=== PATIENT | female | born 1965 | race African-American/Black ===

== ENCOUNTER → 2021-09-29 11:20 | Outpatient (BNVA) | payer MEDICARE, MEDICAID, SELFPAY | PROVIDERS: Referring Provider Emergency Medicine; Visit Provider Internal Medicine Cardiovascular Disease | DX: I25.2 Old myocardial infarction (principal); I25.10 Atherosclerotic heart disease of native coronary artery without angina pectoris; I10 Essential (primary) hypertension; Z72.0 Tobacco use | CPT/HCPCS: 93005; 99212 ==

== ENCOUNTER → 2022-04-07 13:49 | Outpatient (REF) | payer MEDICARE, MEDICAID, SELFPAY ==
--- NOTE | 2022-04-07 13:55 | CA_ITS ---
Transthoracic Echocardiogram Patient (Last, First, Middle): Karolina Singer, Gender: Female Date of : 1965 Age: 57 Procedure Date: 04/07/2022 Procedure Type: Transthoracic Echocardiogram Location: OP Height: 167.64 cm Weight: 63.5 kg BSA: 1.72 m2 Heart Rate: bpm BP: 132 / 84 mmHg Pattern Grader Supervisor: ARABELLA Referring MD: Andre Medrano MD Ore Feeder: Luis Contreras MD Symptoms: I25.2 - Old myocardial infarction Study Quality: Adequate ECG Rhythm: Sinus Conclusions: - 1. Mildly reduced LV ejection fraction at 45-50% with wall motion abnormality of the inferior inferolateral wall with impaired relaxation filling pattern 2. Mild aortic stenosis 3. Moderately dilated left atrium 4. No gross pericardial effusion 5. Mildly dilated ascending aorta at 3.8 cm Findings Left Ventricle Normal left ventricular cavity size. There is normal left ventricular wall thickness. The left ventricular systolic function is mildly decreased. The visually estimated ejection fraction is between 45-50%. Spectral Doppler is indicative of an impaired relaxation filling pattern. E/E prime ratio is between 8 and 15 consistent with indeterminate filling pressures. Wall Motion Rest Echo Findings The mid inferior and basal inferoseptal segments are hypokinetic. The basal inferior and basal inferolateral segments are akinetic. All other scored wall segments showed normal motion. Right Ventricle Normal right ventricular cavity size and systolic function. Atria The left atrium is moderately dilated. There is no evidence of interatrial shunt. The right atrium is normal in size. Aortic Valve There is mild thickening of the aortic valve. There is mild aortic valve stenosis. The peak aortic gradient is 17 mmHg.The mean gradient is 10 mmHg. The aortic valve area is 1.87 cm2. There is no aortic valve regurgitation. Mitral Valve There is mild anterior and posterior mitral leaflet thickening. The posterior mitral leaflet has restricted mobility. There is trace mitral valve regurgitation. There is no mitral valve stenosis. Pulmonic Valve The pulmonic valve was not well visualized. Tricuspid Valve Likely normal tricuspid valve structure and function. Tricuspid regurgitation envelope is inadequate for calculation of right ventricular systolic pressure. Normal right atrial pressure. Great Vessels The pulmonary artery was not well visualized. There is mild dilatation of the ascending aorta. Venous The inferior vena cava is normal in size and collapses greater than 50% with inspiration. Pericardium/Pleural There is no evidence of pericardial effusion. Prior Study Comparison No prior study available for comparison. Measurements 2D Linear Measurements IVSd: 1.18 0.6-0.9/0.6-1.0 cm LVIDd: 5.24 3.9-5.3/4.2-5.9 cm LVIDd Index: 3.05 2.4-3.2/2.2-3.1 cm/m2 LVIDs: 3.91 2.0-3.6 cm LVPWd: 0.93 0.7-1.1 cm LA Diam: 3.80 2.7-3.8/3.0-4.0 cm LAIDs Index: 2.21 1.5-2.3 cm/m2 LV Mass: 263.48 67-162/88-224 g LV Mass Index: 153.19 43-95/49-115 g/m2 LVOT Diam: 1.90 3.0+(-)1.3 cm 2D Systolic Function EF 4C: 47.20 >55% EF 2C: 47.30 >55% EF BiP: 47.10 >55% Mitral Valve MV Pk E: 0.76 MV PK A: 0.99 MV Decel Time: 195.00 E/A: 0.80 E'Lateral: 3.92 E'Medial: 4.66 E/E' Med: 16.30 E/E' Lat: 19.30 PHT: 57.00 MVA PHT: 3.86 Decel [place]: 3.90 Aortic Valve AoV Pk Denny: 2.04 AoV Mn Denny: 1.49 AoV VTI: 0.46 AoV Pk Grad: 17.00 Aov Mn Grad: 10.00 MILES Cont.VTI: 1.87 LVOT LVOT Pk Denny: 1.40 LVOT Mn Denny: 0.93 LVOT VTI: 0.31 LVOT Pk Grad: 8.00 LVOT Mn Grad: 4.00 LVOT Diam: 1.90 LVOT Area: 2.84 Diastolic Function MV Pk E: 0.76 MV Pk A: 0.99 E/A: 0.80 E'Medial: 4.66 E/E' Med: 16.30 E' Laterial: 3.92 E/E' Lat: 19.30 Right Ventricle TAPSE (mm): 24.00 TVS' Denny: 19.00 Tricuspid Valve RA Press: 3.00 Great Vessels Aorta Sinus of Valsalva: 3.67 2.0-3.[address] [place]: 2.63 1.7-3.4 cm Ao Asc: 3.80 2.1-3.4 cm Updated in Other Vendor System with Status of Final Luis Contreras MD electronically signed on 04/08/2022 4:28:39 PM with status of Final
== END ==
LOC: HO.CARD 13:49
PROVIDERS: Visit Provider Internal Medicine Cardiovascular Disease
DX: I25.2 Old myocardial infarction (principal)
CPT/HCPCS: 93306

== ENCOUNTER 2022-04-16 13:54 | Outpatient (REF) | payer MEDICARE, MEDICAID, SELFPAY ==
[2022-04-16 14:13] LABS: MANUAL DIFF FLAG NO
[2022-04-16 14:21] LABS: Basophils Percent Auto 0.2 % (0-2); Eosinophils Absolute Auto 0.7 X10*3/uL (0.0-0.4); Eosinophils Percent Auto 16.5 % (0-4); Hematocrit 39.3 % (37.0-47.0); Hemoglobin 12.2 g/dl (12.0-16.0); Lymphocytes Percent Auto 23.6 % (20-40); Mean Corpuscular Hemoglobin 30.3 pg (27.0-33.0); Mean Corpuscular Volume 97.5 fL (80.0-98.0); Mean Platelet Volume 9.1 fL (9.4-12.3); Monocytes Absolute Auto 0.3 X10*3/uL (0.1-1.2); Neutrophils Absolute Auto 2.3 x10*3/uL (2.0-8.3); Neutrophils Percent Auto 53.7 % (45-73); Platelet Count 353 X10*3/uL (160-400); Red Blood Count 4.03 X10*6/uL (4.20-5.50); Red Cell Distribution Width 13.1 % (11.0-16.0); White Blood Count 4.4 X10*3/uL (4.8-10.8)
[2022-04-16 14:52] LABS: Alanine Aminotransferase 13 U/L (0-31); Albumin Level 3.3 g/dL (3.5-5.0); Alkaline Phosphatase 111 U/L (39-117); Anion Gap 9 (12-20); Aspartate Amino Transferase 21 U/L (5-31); Bilirubin Total 0.5 mg/dL (0.0-1.0); Blood Urea Nitrogen 16 mg/dL (9-16); Calcium 8.8 mg/dL (8.4-10.2); Carbon Dioxide 24 mmol/L (22-29); Chloride 108 mmol/L (96-108); Cholesterol 222 mg/dL; Estimated Glomerular Filt Rate > 60; Glucose Random 120 mg/dL (60-115); HDL Cholesterol 64 mg/dL; LDL Cholesterol Calculated 141 mg/dl; Potassium 4.4 mmol/L (3.3-5.1); Sodium 137 mmol/L (135-145); Total Protein 6.9 g/dL (6.5-8.0); Triglycerides 87 mg/dL
== END 2022-04-16 13:55 | disposition home or self-care (01) ==
LOC: HO.LAB 13:54
PROVIDERS: PCP Internal Medicine; Visit Provider Nurse Practitioner Family
DX: I25.10 Atherosclerotic heart disease of native coronary artery without angina pectoris (principal); I10 Essential (primary) hypertension; I25.2 Old myocardial infarction; Z98.890 Other specified postprocedural states; Z72.0 Tobacco use
CPT/HCPCS: 36415; 80053; 80061; 85025; 93005; 99212

== ENCOUNTER 2024-07-06 15:12 | Outpatient (AMB) | payer MEDICARE, MEDICAID, SELFPAY ==
--- NOTE | 2024-07-06 15:17 | A.OFFVIS_ITS ---
Vital Signs 07/06/24 15:18 Height 5 ft 6 in Weight 190 lb 14.725 oz BMI 30.8 BP 124/80 Blood Pressure Location Rt brachial Position Sitting Intake Visit Reasons: follow up refill meds rs from 07/04/24 Machine Repair Person Required: No Allergies codeine Allergy (Intermediate, Verified 07/06/24 15:21) Dizziness Medication List - Last Reconciled 07/06/24 by Cheyanne Hylton, [employer]ELOP[employer] CONSULTANT-C albuterol sulfate 90 mcg/actuation 0 mcg inhalation aspirin 81 mg PO DAILY atorvastatin 80 mg PO DAILY ferrous sulfate 325 mg PO DAILY hydroxyzine HCl 25 mg PO TID PRN thiamine HCl (vitamin B1) 100 mg PO DAILY HPI HPI follow up refill meds rs from 07/04/24: Details: Karolina is a 59 yo female with PMH of HTN, HLD, smoking, CAD with prior inferior STEMI who presents for follow up. Her last prior visit to our office was 04/16/2022. Today she reports that since her last visit she has been admitted to [facility] on at least 2 occasions for noncardiac reasons. She tells me she has not had any heart problems for the last few years. She denies having any chest discomfort at rest or with activity. She denies shortness of breath, PND, orthopnea or edema. No lightheadedness, palpitations, presyncope, syncope, falls. Has issues with her skin so she stays inside much of time. Takes all meds as directed. She tells me that her carvedilol was stopped but is unsure why. She ran out of Logisticaresto and is requesting a refill. Family members are present. [facility] Surgical History H/O gastric bypass History of right knee surgery H/O section History of cardiac cath Family History Mother Heart disease Father Prostate cancer Asthma Diabetes HTN (hypertension) Sister Asthma Brother Diabetes Sister Diabetes Social History Alcohol intake: current Alcohol intake frequency: holidays/special occasions only Patient Tobacco Use Status: Current everyday Tobacco user Cigarette Packs Per Day: 0.5 Cigarettes Per Day: 6 Years Smoked: 40 +/- on and off. Substance Use Type: Crack/Cocaine and Marijuana Review of Systems Const All systems reviewed & are unremarkable except as noted in HPI and below ENT Denies dizziness Card Denies chest pain, Denies chest pain at rest, Denies chest pain with activity, Denies rapid heart rate, Denies pedal edema, Denies edema, Denies leg edema, Denies lightheadedness, Denies palpitations, Reports dyspnea, Reports dyspnea on exertion and Denies orthopnea Resp Denies cough, Reports dyspnea and Reports dyspnea on exertion GI Denies hematochezia and Denies change in stool character Musc Denies abnormal gait, Denies limited range of motion, Denies muscle cramps, Denies muscle weakness, Denies numbness, Denies radiating pain into limb, Denies stiffness and Denies tingling Neuro Denies abnormal gait, Denies dizziness, Denies numbness and Denies tingling Endo Denies palpitations Physical Exam Vital Signs: Last Vital Signs BP 124/80 07/06/24 15:18 BMI result Body Mass Index 30.8 Const General: cooperative, comfortable and no acute distress Neck Neck: Yes normal visual inspection and Yes no JVD Resp Effort & Inspection: normal respiratory effort Auscultation: clear to auscultation bilaterally, no crackles, no rales, no rhonchi and no wheezes Cardio Jugular venous distension: no JVD Rate: regular rate Rhythm: regular rhythm Heart sounds: S1 normal heart sound present, S2 normal heart sound present, no gallops, no murmurs and no rubs GI Inspection: Yes normal to inspection Extrem General: Yes normal to inspection and No no pedal edema Psych Appearance: grossly normal Mental Status: mental status grossly normal Speech and movement: Normal speech and movement present Office Procedures EKG Details: Today, read by me, sinus rhythm, possible inferior and anterior infarct, age undetermined, rate 67, QTC 456 milliseconds [id number], Complete Assessment & Plan Assessment & Plan (1) CAD (coronary artery disease): Code(s): I25.10 - Atherosclerotic heart disease of lummi coronary artery without angina pectoris Category: Medical Plan: Hx of inferior STEMI 07/17/21. Cardiac cath showed mod LAD stenosis, 60% RCA sten osis with plaque rupture, R PDA 85% stenosis. NILMA was placed to RCA and angioplasty done to R PDA. Last Echo done on 04/07/22 showed EF 45-50%, WMA inferior and inferiolateral territories, impaired relaxation, mild , mod dilated LA. She had been on Entresto and carvedilol. Her med list today does not include either medication. She was not seen in the office between 04/16/2022 and today. She currently reports no anginal sounding symptoms. Continues to smoke 1/2 pack per day. Ongoing cardiac risk factor modification reviewed with her. Continue aspirin indefinitely. Continue high-dose atorvastatin. No recent labs for review. Will reach out to her PCP office and/or [facility] to check most recent labs and medications. Once labs reviewed will send refill on Entresto if appropriate. Will update echocardiogram. s/s angina, HF reviewed with her. Cardiology follow up in 1 yr, sooner if needed (2) S/P cardiac cath: Comment: 07/17/21 LAD mid 50% stenosis, LCx normal, RCA mid 60% stenosis with plaque rupture, NILAM placed, R PDA 85% stenosis, angioplasty done, heavy thrombus. Code(s): Z98.890 - Other specified postprocedural states Category: Surgical (3) Old inferior wall myocardial infarction: Code(s): I25.2 - Old myocardial infarction Category: Medical Plan: As above (4) Essential hypertension: Code(s): I10 - Essential (primary) hypertension Category: Medical Plan: Normal at this time. No med changes made. Plan Time spent on chart review, documentation, interview and assessment Orders: Orders CA echo transthoracic complete Today I25.10 - Atherosclerotic heart disease of lummi coronary artery without angina pectoris, I25.2 - Old myocardial infarction Coding Level of Care Code Est Pt Level 4 (44945) Diagnoses CAD (coronary artery disease) I25.10 S/P cardiac cath Z98.890 Old inferior wall myocardial infarction I25.2 Essential hypertension I10 CPT Codes EKG - CPT: 15060-[id number], Complete ([id number]) Time Spent (min) 35
[2024-07-06 15:18] VITALS: BP 124/80; BMI 30.8
== END 2024-07-06 15:47 | disposition home or self-care (01) ==
PROVIDERS: PCP Internal Medicine; Visit Provider Nurse Practitioner Family
DX: I25.10 Atherosclerotic heart disease of native coronary artery without angina pectoris (principal); Z98.890 Other specified postprocedural states; I25.2 Old myocardial infarction; I10 Essential (primary) hypertension
CPT/HCPCS: 93010; 99214

== ENCOUNTER → 2024-07-06 15:12 | Outpatient (BNVA) | payer MEDICARE, MEDICAID, SELFPAY | PROVIDERS: PCP Internal Medicine; Visit Provider Nurse Practitioner Family | DX: I25.10 Atherosclerotic heart disease of native coronary artery without angina pectoris (principal); I10 Essential (primary) hypertension; I25.2 Old myocardial infarction; Z98.890 Other specified postprocedural states | CPT/HCPCS: 93005; 99212 ==

== ENCOUNTER → 2024-09-05 12:25 | Outpatient (REF) | payer MEDICARE, MEDICAID, SELFPAY ==
--- NOTE | 2024-09-05 12:28 | CA_ITS ---
Transthoracic Echocardiogram Patient (Last, First, Middle): Karolina Singer, Gender: Female Date of : 1965 Age: 59 Procedure Date: 09/05/2024 Procedure Type: Transthoracic Echocardiogram Location: OP Height: 167. cm Weight: 70.31 kg BSA: 1.79 m2 Heart Rate: 65 bpm BP: 138 / 85 mmHg Lithographic Camera Operator: NAN White MD: Cheyanne Hylton NP-Disha Hair Rooting Machine Operator: Luis Contreras MD Symptoms: I25.10 - Atherosclerotic heart disease of jena coronary artery without... Study Quality: Adequate ECG Rhythm: Sinus Conclusions: - 1.Mildly dilated left ventricle with moderate to severe LV ejection fraction of 30 35% with underlying regional wall motion abnormality consistent with ischemic cardiomyopathy with impaired relaxation filling pattern 2. Mildly dilated left atrium 3. Calcific aortic and mitral valve changes noted with no significant abnormalities of cardiac valvular Doppler 4. Normal RV systolic pressure 5. Mildly dilated ascending aorta at 3.8 cm 6. No gross pericardial effusion Findings Left Ventricle Mildly increased left ventricular cavity size. There is mildly increased left ventricular wall thickness. The left ventricular systolic function is moderate to severely decreased. The visually estimated ejection fraction is between 30-35%. There is evidence of regional wall motion abnormalities. Spectral Doppler is indicative of an impaired relaxation filling pattern. E/E prime ratio is between 8 and 15 consistent with indeterminate filling pressures. Wall Motion Rest Echo Findings The basal anteroseptal segment is hypokinetic. The inferoseptal wall, inferolateral wall, the mid inferior, and apical septum segments are akinetic. The basal inferior segment is dyskinetic. All other scored wall segments showed normal motion. Right Ventricle Normal right ventricular cavity size and systolic function. Atria The left atrium is mildly dilated. There is no evidence of interatrial shunt. The right atrium is likely dilated. Aortic Valve There is mild calcification of the aortic valve. There is moderate thickening of the aortic valve. There is no aortic valve stenosis. There is no aortic valve regurgitation. Mitral Valve There is mild anterior and moderate posterior mitral leaflet thickening. The posterior mitral leaflet has restricted mobility. There is moderate mitral annular calcification. There is trace mitral valve regurgitation. There is no mitral valve stenosis. Pulmonic Valve The pulmonic valve is likely normal. There is trace pulmonic valve regurgitation. Tricuspid Valve Normal tricuspid valve structure. There is trace tricuspid valve regurgitation. The right ventricular systolic pressure is normal. The right ventricular systolic pressure is 17 mmHg. Normal right atrial pressure. There is no evidence of pulmonary hypertension. Great Vessels The pulmonary artery was not well visualized. There is mild dilatation of the ascending aorta measuring 3.80 cm. Small plaque is seen in the sino tubular ridge. Venous The inferior vena cava is normal in size and collapses greater than 50% with inspiration. Pericardium/Pleural There is no evidence of pericardial effusion. Prior Study Comparison Changes noted compared to prior study dated: 04/07/2022. LV systolic function has reduced Measurements 2D Linear Measurements IVSd: 1.19 0.6-0.9/0.6-1.0 cm LVIDd: 5.99 3.9-5.3/4.2-5.9 cm LVIDd Index: 3.35 2.4-3.2/2.2-3.1 cm/m2 LVIDs: 4.78 2.0-3.6 cm LVPWd: 1.00 0.7-1.1 cm LA Diam: 5.00 2.7-3.8/3.0-4.0 cm LAIDs Index: 2.79 1.5-2.3 cm/m2 LV Mass: 345.72 67-162/88-224 g LV Mass Index: 193.14 43-95/49-115 g/m2 LVOT Diam: 2.10 3.0+(-)1.3 cm 2D Systolic Function EF 4C: 37.60 >55% EF 2C: 35.10 >55% EF BiP: 34.50 >55% Mitral Valve MV Pk E: 0.59 MV PK A: 1.02 MV Decel Time: 243.00 E/A: 0.60 E'Lateral: 5.43 E'Medial: 2.80 E/E' Med: 21.10 E/E' Lat: 10.90 PHT: 71.00 MVA PHT: 3.10 Decel [place]: 2.43 Aortic Valve AoV Pk Denny: 1.44 AoV Mn Denny: 1.14 AoV VTI: 0.33 AoV Pk Grad: 8.00 Aov Mn Grad: 6.00 MILES Cont.VTI: 2.63 LVOT LVOT Pk Denny: 1.35 LVOT Mn Denny: 0.89 LVOT VTI: 0.25 LVOT Pk Grad: 7.00 LVOT Mn Grad: 4.00 LVOT Diam: 2.10 LVOT Area: 3.46 Diastolic Function MV Pk E: 0.59 MV Pk A: 1.02 E/A: 0.60 E'Medial: 2.80 E/E' Med: 21.10 E' Laterial: 5.43 E/E' Lat: 10.90 Right Ventricle TAPSE (mm): 29.10 TVS' Denny: 17.40 Tricuspid Valve TR Pk Denny: 1.84 TR Pk Grad: 14.00 RA Press: 3.00 RVSP: 17.00 Great Vessels Aorta Sinus of Valsalva: 3.40 2.0-3.5 cm Ao Asc: 3.80 2.1-3.4 cm Pulmonary Valve PV Pk Denny: 0.81 Peak PV Grad: 3.00 Updated in Other Vendor System with Status of Final Luis Contreras MD electronically signed on 09/06/2024 5:10:30 PM with status of Final
== END ==
LOC: HO.CARD 12:25
PROVIDERS: PCP Internal Medicine; Visit Provider Nurse Practitioner Family
DX: I25.10 Atherosclerotic heart disease of native coronary artery without angina pectoris (principal); I25.2 Old myocardial infarction
CPT/HCPCS: 93306

== ENCOUNTER → 2024-09-05 12:28 | Outpatient (BNV) | payer MEDICARE, MEDICAID, SELFPAY | PROVIDERS: PCP Internal Medicine; Visit Provider Internal Medicine Cardiovascular Disease | DX: I25.10 Atherosclerotic heart disease of native coronary artery without angina pectoris (principal) | CPT/HCPCS: 93306 ==

== ENCOUNTER 2024-09-18 12:40 | Outpatient (REF) | payer MEDICARE, SELFPAY ==
[2024-09-18 14:36] LABS: Alanine Aminotransferase 22 U/L (0-31); Albumin Level 3.5 g/dL (3.5-5.0); Alkaline Phosphatase 118 U/L (39-117); Anion Gap 8 (12-20); Aspartate Amino Transferase 34 U/L (5-31); Bilirubin Total 0.3 mg/dL (0.0-1.0); Blood Urea Nitrogen 16 mg/dL (9-16); Calcium 8.9 mg/dL (8.4-10.2); Carbon Dioxide 25 mmol/L (22-29); Chloride 107 mmol/L (96-108); Cholesterol 175 mg/dL (<200); Estimated Glomerular Filt Rate > 60; Glucose Random 128 mg/dL (60-115); HDL Cholesterol 67 mg/dL (>40); LDL Cholesterol Calculated 94 mg/dL (<100); Sodium 136 mmol/L (135-145); Total Protein 7.2 g/dL (6.5-8.0); Triglycerides 73 mg/dL (<150)
== END 2024-09-18 12:41 | disposition home or self-care (01) ==
LOC: HO.LAB 12:40
PROVIDERS: PCP Internal Medicine; Visit Provider Nurse Practitioner Family
DX: I25.10 Atherosclerotic heart disease of native coronary artery without angina pectoris (principal)
CPT/HCPCS: 36415; 80053; 80061

== ENCOUNTER → 2025-04-24 09:59 | Outpatient (REF) | payer MEDICARE, SELFPAY ==
--- NOTE | ~2025-04-24 | NM_ITS ---
Lexiscan Myocardial perfusion study Indication: Coronary artery disease Technique: The patient was brought in for a Lexiscan perfusion study on 04/24/2025 and was injected 0.4 mg of Lexiscan intravenously. Within a minute of this injection 30 mCi of sestamibi was given intravenously. Images were obtained using the SPECT gamma camera interlaced with the gating device. Images were obtained in supine position. Resting perfusion study was performed on 05/04/2025. Patient was administered 30 mCi of sestamibi intravenously at rest. Images were then obtained in supine position. Total DLP 107 mGy-cm. Images were processed with the software and compared side to side in short axis, horizontal long axis and vertical long axis views. Findings: Raw aquisition reviewed. The stress perfusion study showed absent tracer uptake along mostly inferior wall, inferolateral wall. Reduced tracer uptake in the mid to distal anterior septum. With CT attenuation correction, no significant change in the inferior wall uptake. In the anterior septum, uptake is worse and hence could be because artifactual. The gated study shows reduced LV systolic function with calculated LVEF of 27%. LV cavity is dilated in size. The gated study shows reduced contractility in the inferior/inferolateral wall. Reduced contractility in the distal anterior septum. Resting study shows reduced absent tracer uptake in the inferior/inferolateral wall but slightly improved compared to stress acquisition. Reduced tracer uptake in the distal part of anterior septum. With CT attenuation correction, inferior wall uptake is similar. Improved anterior uptake. Gating at rest reveals reduced was documented inferior/inferolateral wall. Reduced thickening in the anterior septum. LVEF 34%. LV cavity is dilated. The findings are consistent with mostly fixed inferior/inferolateral defect with mild reversibility along the inferolateral portion. Fixed defect in the mid to distal anterior septum. NM/UT cardiolite stress test Impression: 1. 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 Nontransmural infarct in the mid to distal part of anterior septum. 2. Gated LVEF is 27% during stress and 34% during rest. 3. Transient ischemic dilatation not present. EKG component of the test reported separately. Electronically signed by: Mirza Jc MD 05/06/2025 10:43 AM EDT
--- NOTE | 2025-04-24 10:01 | CA_ITS ---
Acquisition Time: 2025-04-24 10:27:39 Total Exercise Time: 00:02:00 Test Indications: CAD Medications: ASA ALBUTEROL ATORVASTATIN HYDROXYZINE Protocol: LEXISCAN Max HR: 96 BPM 60% of Pred: 158 BPM Max BP: 122/74 mmHG Max Work Load: 1.0 METS Pharmacological stress test with Lexiscan while pt marches in her chair, with reports of SOB, nausea, and lightheadedness, with isolated PVC, with normotensive response to injection. Nondiagnostic EKG for ischemia. In recovery, pt treated with IVP Aminophylline 75 mg to reverse Lexiscan after which pt feeeling back to baseline. Nuclear images pending. Test reviewed with Dr. Medrano. Referred By: Cheyanne Hylton Electronically Signed By: Sudheer Mcdowell
--- OUTSIDE RECORDS SUMMARY | 2025-04-24 10:42 | XMS_ITS | Clinical Summary ---
Author Organization [address] [facility] Address [address] [place] [address] Phone Care Team Providers Care Head Start Director Name Role Phone Gregorio Manjarrez MD Primary Care Provider [phone] Allergies Active Allergy Reactions Criticality Noted Date Comments Codeine 08/27/2021 Penicillins High 05/19/2018 Other reaction(s): Tongue Irritation Medications atorvastatin (LIPITOR) 80 mg tablet TAKE 1 TABLET BY MOUTH EVERY DAY 06/12/20 24 Active omeprazole (PriLOSEC) [address] capsule TAKE ONE CAPSULE BY MOUTH DAILY AT 9AM 07/16/20 23 Active pyridoxine (B-6) 50 mg tablet Take 1 Tablet by mouth daily. Take 2 tablets by mouth Every day Active THIAMINE HCL, VITAMIN B1, ORAL Take 600 mg by mouth. Take 1 by mouth every day Active multivitamin (DAILY-FLORENCIA ORAL) Take by mouth. Take 1 tablet by mouth daily Active bictegravir-emt ricitabine-teno fovir alafenamide (Biktarvy) 50-200-25 mg per tablet Take by mouth. Take 1 tablet by mouth every day at bedtime Active sucralfate (CARAFATE) 1 gram tablet Take 1 Tablet by mouth 3 times daily. Take 1 tablet by mouth 3 times a day before meals and at bedtime , take 3 hours before Biktarvy Active aspirin 81 mg EC tablet Take 81 mg by mouth daily. Active fluticasone-eamon meterol (ADVAIR DISKUS) 250-50 mcg/dose diskus inhaler Inhale 1 Puff into the lungs 2 times daily. 08/02/20 20 Active hydrOXYzine HCL (ATARAX) 25 mg tablet TAKE 1 TABLET BY MOUTH THREE TIMES A DAY 270 tablet 1 01/30/20 25 Active sacubitriL-vals giselle (Entresto) 24-26 mg per tablet Take 1 tablet by mouth 2 (two) times a day. 180 tablet 1 02/01/20 25 Active albuterol HFA (PROAIR HFA ; PROVENTIL HFA ; VENTOLIN HFA) 90 mcg/actuation inhaler INHALE 2 PUFFS BY MOUTH EVERY 4 HOURS IF NEEDED FOR WHEEZING 18 each 1 04/02/20 25 Active albuterol HFA (PROAIR HFA ; PROVENTIL HFA ; VENTOLIN HFA) 90 mcg/actuation inhaler Inhale 2 puffs by mouth every 4 (four) hours if needed for wheezing. 18 each 1 10/09/20 24 025 Discontinued Active Problems Problem Noted Date Diagnosed Date Type 2 diabetes mellitus wit hout complication ([facility] V24, [facility] V28) 08/02/2018 Overview (12/13/2024): DX:Type 2 diabetes mellitus without complication ([facility]) Eczema 05/19/2018 Asthma 07/08/2017 Overview (12/13/2024): DX:Asthma Anemia 04/28/2017 Overview (12/13/2024): DX:Anemia Hyperlipidemia 04/28/2017 Overview (12/13/2024): DX:Hyperlipidemia Hypertension 10/27/2016 Overview (12/13/2024): DX:Hypertension Vitamin D deficiency 10/27/2016 Overview (12/13/2024): DX:Vitamin D deficiency Allergic rhinitis 07/07/2016 Overview (12/13/2024): DX:Allergic rhinitis Hemorrhoids 06/17/2016 Overview (12/13/2024): DX:Hemorrhoids Lumbar radiculopathy 10/17/2015 Overview (12/13/2024): DX:Lumbar radiculopathy Morbid obesity with BMI of 5 0.0-59.9, adult ([facility] V24, [facility] V28) Overview (12/13/2024): DX:Morbid obesity with BMI of 50.0-59.9, adult ([facility]) Encounters Date Type Department Care Team Description 03/27/2025 Telephone Internal Medicine [address] [address] Gregorio Manjarrez MD Pre-op Exam 02/26/2025 10:00 AM EDT Consult Internal Medicine [address] [address] Gregorio Manjarrez MD Preop examination (Primary Dx); Mild intermittent asthma without complication; Other congestive heart failure ([facility] V24, [facility] V28) 02/12/2025 Telephone Internal Medicine [address] [address] Gregorio Manjarrez MD Pre-op Exam from Last 3 Months Immunizations Name Administration Dates Next Due MMR, measles mumps and rubel la Live (Priorix; M-M-R II) 12mo and older 06/11/2016 Tdap Tetanus diptheria acell ular pertussis (Boostrix; Adacel) 7yo and older 02/24/2016 Surgical History Surgery Date Site/Laterality Comments KNEE SURGERY 1978 PROCEDURE: HISTORICAL KNEE SURGERY; COMMENT: Torn meniscus SECTION 1987 PROCEDURE: HISTORICAL Medical History Medical History Date Comments Morbid obesity with BMI of 5 0.0-59.9, adult ([facility] V24, [facility] V28) 04/01/2015 DX:Morbid obesity wit h BMI of 50.0-59.9, adult ([facility]) Allergic rhinitis 07/07/2016 DX:Allergic rh initis Anemia 04/28/2017 DX:Anemia Asthma 07/08/2017 DX:Asthma Hemorrhoids 06/17/2016 DX:Hemorrhoids Hyperlipidemia 04/28/2017 DX:Hyperlipidemi a Hypertension 10/27/2016 DX:Hypertension Lumbar radiculopathy 10/17/2015 DX:Lumbar r adiculopathy Vitamin D deficiency 10/27/2016 DX:Vitamin D deficiency Type 2 diabetes mellitus wit hout complication ([facility] V24, [facility] V28) 08/02/2018 DX:Type 2 diabetes mellitus without complication (HCC) Social History Tobacco Use Types Packs/Day Years Used Date Smoking Tobacco: Every Day Cigarettes Smokeless Tobacco: Never Alcohol Use Standard Drinks/Week Comments No 0 (1 standard drink = 0.6 oz pur e alcohol) Comments Unknown Sex and Gender Information Value Date Recorded Sex Assigned at Not on file Legal Sex Female 10:09 AM EST Gender Identity Not on file Sexual Orientation Not on file Obstetrics History Last Filed Vital Signs Vital Sign Reading Time Taken Comments Blood Pressure 138/84 02/26/2025 10:15 AM EDT Pulse 85 02/26/2025 10:15 AM EDT Temperature 37.2 C (99 F) 02/26/2025 10:15 AM EDT Respiratory Rate - - Oxygen Saturation 98% 02/26/2025 10:15 AM EDT Inhaled Oxygen Concentration - - Weight 85.3 kg (188 lb) 02/26/2025 10:15 AM EDT Height 167.6 cm (5' 6 ) 02/26/2025 10:15 AM EDT Body Mass Index 30.34 02/26/2025 10:15 AM EDT Plan of Treatment Health Maintenance Due Date Last Done Comments Breast Cancer Screening 1965 Diabetes: Annual GFR (Glomer ular Filtration Rate) 1965 Meningococcal ACWY Vaccine ( 1 - Risk 2-dose series) 1965 COVID-19 Vaccine (#1) 01/04/1968 Diabetes: Annual Foot Exam 1973 Diabetes: Annual Retina Eye Exam 1973 Hepatitis A Vaccines (1 of 2 - Risk 2-dose series) 1982 Pneumococcal Vaccine: 50+ Ye ars (1 of 2 - PCV) 1982 Zoster Vaccines (1 of 2) 1982 Cervical Cancer Screening: P ap Smear 01/04/1984 MMR Vaccines (2 of 2 - Risk 2-dose series) 07/09/2016 06/11/2016 Cholesterol Screening (Lipid Panel) 09/20/2022 Colorectal Cancer Screening: Colonoscopy 09/20/2022 Depression Screening 09/20/2022 Hepatitis C Screening 09/20/2022 Medicare Annual Wellness Visit 09/20/2022 Social Influencers of Health Screening 09/20/2022 Hypertension/CHF/CAD Annual BMP Blood Test 09/27/2022 Diabetes: Annual Urine Albumin-Creatinine Ratio (uACR) 09/29/2022 Diabetes: Blood Sugar Contro l Test (HGBA1C) 09/29/2022 Hepatitis B Vaccines (1 of 3 - Risk 3-dose series) 2023 RSV Immunization Adult Patie nts (1 - Risk 60-74 years 1-dose series) 2023 Influenza Vaccine (#1) 2025 12/12/2022 DTaP,Tdap,and Td Vaccines (2 - Td or Tdap) 02/23/2026 02/24/2016 HIB Vaccines Aged Out No longer eligi ble based on patient's age to complete this topic HPV Vaccines Aged Out No longer eligi ble based on patient's age to complete this topic IPV Vaccines Aged Out No longer eligi ble based on patient's age to complete this topic Meningococcal B Vaccine Aged Out No l onger eligible based on patient's age to complete this topic RSV Immunization Patients Un edwige 20 months Aged Out No longer eligible b ased on patient's age to complete this topic Varicella Vaccines Aged Out No longer eligible based on patient's age to complete this topic Insurance [address] [place] [address] [employer] MEDICARE ADVANTAGE Care Teams Head Start Director Relationship Specialty Start Date End Date Gregorio Manjarrez MD [address] [facility] [address] [place] [address] PCP - General Internal Medicine 11/24/18
== END ==
LOC: HO.CARD 09:59
PROVIDERS: PCP Internal Medicine; Visit Provider Nurse Practitioner Family
DX: I25.10 Atherosclerotic heart disease of native coronary artery without angina pectoris (principal); I42.9 Cardiomyopathy, unspecified; I25.2 Old myocardial infarction; Z86.79 Personal history of other diseases of the circulatory system; Z85.29 Personal history of malignant neoplasm of other respiratory and intrathoracic organs; Z87.891 Personal history of nicotine dependence; Z88.6 Allergy status to analgesic agent
CPT/HCPCS: 78452; 93017; A9500; J0280; J2785

== ENCOUNTER → 2025-04-24 10:01 | Outpatient (BNV) | payer MEDICARE, SELFPAY | PROVIDERS: PCP Internal Medicine | DX: R06.02 Shortness of breath (principal); I49.3 Ventricular premature depolarization | CPT/HCPCS: 78452; 93016; 93018 ==